=== PATIENT | male | born 1970 | race Two or more races ===

== ENCOUNTER 2025-08-29 10:34 | Inpatient (IN) | payer MEDICAID, OTHER ==
[~2025-08-29] VITALS: Ht 165.1 cm; Wt 106.9 kg
--- NOTE | 2025-08-29 12:05 | ED.PDOC ---
GI ASSESSMENT HPI Comments 54 year old male presents to the ED with a chief complaint of RUQ pain onset 2 months. Patient has been experiencing intermittent RUQ pain for the past 2 months, worsen 5 days ago, was seen at a clinic, US was done and told he had gallstones. Last night he noticed pain worsened and this morning pain was worsening with movement. Denies PMHx as well as fever, chills, nausea, vomiting, diarrhea, headache, dizziness, hematemesis, hematuria, dysuria. No other symptoms or worsening factors present at this time. Chief Complaint: Abdominal Pain Time Seen by MD: 11:45 Reviewed Notes: Medications, Allergies Allergies: Coded Allergies: NO KNOWN ALLERGIES (Unverified , 08/29/25) Home Meds Active Scripts Hydrocodone-Acetaminophen (Hydrocodone Bitartrate/AC 5-325 mg) 1 Tab Tab, 1 TAB PO QID PRN, #30 TAB Prov:SATHISH RIVAS MD 09/01/25 Metronidazole (Flagyl) 500 Mg Tab, 1 TAB PO TID, #30 TAB Prov:SATHISH RIVAS MD 09/01/25 Levofloxacin Hemihydrate (LEVAQUIN 500 MG) 500 Mg Tab, 1 TAB PO DAILY, #10 TAB Prov:SATHISH RIVAS MD 09/01/25 Reported Medications Losartan Potassium (Losartan Potassium) 100 Mg Tab, 100 MG PO DAILY for 30 Days, MG 08/29/25 Information Source: Patient, Spouse Mode of Arrival: Ambulatory Timing: Months Duration: Intermittent Prehospital treatment: None Quality: Sharp Vomitus: None Severity: Moderate Recent: None Recent Hx of: Other (gallstones) Pain Location: RUQ Modifying Factors: Nothing Associated sign and symptoms: Abdominal Pain (RUQ) Past Medical History PAST MEDICAL HISTORY: Gallstones Surgical History: Denies all surgeries Family History Family History: Reviewed,noncontributory to illness, No family hx of Cancer, No family hx of DM, No family hx of Heart keith, No family hx of HTN, No family hx ofKidney keith, No family hx of Liver keith, No family hx of Lung keith, No family hx of Stroke Social History Smoker: Non-Smoker Alcohol: Denies ETOH Use Drugs: Denies Drug Use Lives In: Home Constitutional: denies: chills, diaphoresis, fatigue, fever, malaise, sweats, weakness, others EENTM: denies: blurred vision, double vision, ear bleeding, ear discharge, ear drainage, ear pain, ear ringing, eye pain, eye redness, hearing loss, mouth pain, mouth swelling, nasal discharge, nose bleeding, nose congestion, nose pain, photophobia, tearing, throat pain, throat swelling, voice changes, others Respiratory: denies: cough, hemoptysis, orthopnea, SOB at rest, shortness of breath, SOB with excertion, stridor, wheezing, others Cardiovascular: denies: chest pain, dizzy spells, diaphoresis, Dyspnea on exertion, edema, irregular heart beat, left arm pain, lightheadedness, palpitations, PND, syncope, others Gastrointestinal: reports: abdominal pain; denies: abdomen distended, blood streaked bowels, constipated, diarrhea, dysphagia, difficulty swallowing, hematemesis, melena, nausea, poor appetite, poor fluid intake, rectal bleeding, rectal pain, vomiting, others Genitourinary: denies: burning, dysuria, flank pain, frequency, hematuria, incontinence, penile discharge, penile sore, pain, testicle pain, testicle swelling, urgency, others Neurological: denies: dizziness, fainting, headache, left sided numbness, left sided weakness, numbness, paresthesia, pre-existing deficit, right sided numbness, right sided weakness, seizure, speech problems, tingling, tremors, weakness, others Musculoskeletal: denies: back pain, gout, joint pain, joint swelling, muscle pain, muscle stiffness, neck pain, others Integumetry: denies: bruises, change in color, change in hair/nails, dryness, laceration, lesions, lumps, rash, wounds, others Hematologic/Lymphatic: denies: anemia, blood clots, easy bleeding, easy bruising, swollen glands, others Endocrine: denies: excessive hunger, excessive sweating, excessive thirst, excessive urination, flushing, intolerance to cold, intolerance to heat, unexplained weight gain, unexplained weight loss, others Psychiatric: denies: anxiety, bipolar disorder, depression, hopeless, panic disorder, schizophrenia, sleepless, suicidal, others All Other Systems: Reviewed and Negative Physical Exam General Appearance: Normal HEENT: Normal ENT Inspection, Pharynx Normal, TMs Normal Neck: Full Range of Motion, Non-Tender, Normal, Normal Inspection Respiratory: Chest Non-Tender, Lungs Clear, No Accessory Muscle Use, No Respiratory Distress, Normal Breath Sounds Cardiovascular: No Edema, No JVD, No Murmur, No Gallop, Normal Peripheral Pulses, Regular Rate/Rhythm Breast Exam: Deferred Gastrointestinal: No Organomegaly, Non Tender, No Pulsatile Mass, Normal Bowel Sounds, Soft Genitalia: Deferred Pelvic: Deferred Rectal: Deferred Extremities: No calf tenderness, Normal capillary refill, Normal inspection, Normal range of motion, Non-tender, No pedal edema Musculoskeletal : Apperance: Normal Neurologic: Alert, 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 Was a procedure done?: No GI differential Dx Differential Diagnosis: Cholecystitis, Gastritis/PUD, Gastroenteritis, Pancreatitis, UTI, Electrolyte Imbalance, Viral X-Ray, Labs, Meds, VS Vital Signs Date Time Temp Pulse Resp B/P (MAP) Pulse Ox O2 Delivery O2 Flow Rate FiO2 08/29/25 16:00 66 18 138/87 (104) 96 08/29/25 15:59 88 18 123/78 08/29/25 15:42 97 Room Air* 0 21 08/29/25 15:29 88 18 134/73 08/29/25 14:55 98.6 61 18 123/78 (93) 96 98.6 08/29/25 12:37 Room Air* 0 21 08/29/25 12:37 66 16 144/86 (105) 99 08/29/25 10:43 98.0 65 18 116/67 95 98.0 Lab Test 08/29/25 15:19 08/29/25 11:51 Range/Units POC Glucose 103 70-106 mg/dl White Blood Count 7.1 4.4-10.8 10^3/uL Red Blood Count 5.19 4.5-5.90 10^6/uL Hemoglobin 15.2 13.5-17.5 g/dL Hematocrit 44.6 41.0-53.0 % Mean Corpuscular Volume 85.9 80.0-100.0 fL Mean Corpuscular Hemoglobin 29.4 28.0-32.0 pg Mean Corpuscular Hemoglobin Concent 34.2 32.0-36.0 g/dL Red Cell Distribution Width 14.8 H 11.8-14.3 % Platelet Count 169 140-450 10^3/uL Mean Platelet Volume 8.9 6.9-10.8 fL Neutrophils (%) (Auto) 68.9 37.0-80.0 % Lymphocytes (%) (Auto) 24.6 10.0-50.0 % Monocytes (%) (Auto) 5.2 0.0-12.0 % Eosinophils (%) (Auto) 1.0 0.0-7.0 % Basophils (%) (Auto) 0.3 0.0-2.0 % Neutrophils # (Auto) 4.9 1.6-8.6 10 ^3/uL Lymphocytes # (Auto) 1.7 0.4-5.4 10 ^3/uL Monocytes # (Auto) 0.4 0-1.3 10 ^3/uL Eosinophils # (Auto) 0.1 0-0.8 10 ^3/uL Basophils # (Auto) 0 0-0.2 10 ^3/uL Nucleated Red Blood Cells 0.1 % Sodium Level 144 136-145 mmol/L Potassium Level 3.9 3.5-5.1 mmol/L Chloride Level 108 H 98-107 mmol/L Carbon Dioxide Level 26 20-31 mmol/L Anion Gap 10 5-15 Blood Urea Nitrogen 11 9-23 mg/dL Creatinine 0.69 L 0.700-1.30 mg/dL Glomerular Filtration Rate Calc 110 >90 mL/min BUN/Creatinine Ratio 15.9 10.0-20.0 Serum Glucose 98 74-106 mg/dL Calcium Level 9.4 8.7-10.4 mg/dL Total Bilirubin 0.8 0.2-1.0 mg/dL Aspartate Amino Transferase (AST) 25 13-40 U/L Alanine Aminotransferase (ALT) 36 7-40 U/L Alkaline Phosphatase 70 46-116 U/L Total Protein 7.6 5.7-8.2 g/dL Albumin 4.8 3.2-4.8 g/dL [facility] [id number] [place] [id number] Ph: [phone] DIAGNOSTIC IMAGING Diagnostic Imaging Report : [id number] Signed PATIENT: TALIA CARROLL ACCT: [id number] UNIT: [id number] : 1970 LOC: ER ROOM / BED: / AGE / SEX: 54 / M ADM STATUS: REG ER SERVICE 1141 ORDERING PHYSICIAN: HIGINIO NOBLE MD PROCEDURE(s): GBUS - GALLBLADDER REASON: ruq pain ORDER NUMBER(s): [id number], ACCESSION NUMBER(s): [id number] INDICATION: ruq pain TECHNIQUE: Multiple real-time sonographic images of the abdomen were obtained. COMPARISON: None FINDINGS: Hepatic parenchyma is echogenic consistent with steatosis.. The liver measures 15.7 cm. No intrahepatic biliary ductal dilatation is noted. The gallbladder wall measures 0.22 cm and is unremarkable. Gallstones questi onable sludge noted in the gallbladder. Is a 1 cm echogenic structure in the neck of the gallbladder. Likely gallstone The common duct measures 0.58 cm and is unremarkable. No pericholecystic fluid is noted. Positive sonographic Cuellar's sign The right kidney measures 11 cm. No hydronephrosis. The pancreas is not well visualized due to obscuration from bowel gas. The visualized portions of the IVC and aorta are grossly unremarkable. IMPRESSION: 1. Gallstones questionable sludge in the gallbladder. Echogenic structure in the neck of the gallbladder measuring 1 x 0.4 0.9 cm most likely a gallstone. Positive sonographic Cuellar's sign suggesting acute cholecystitis. 2. Liver measures 15.7 cm echogenic changes parenchymal consistent with steatosis. 3. Pancreas is partially obscured by bowel gas 4. Right kidney measures 11 cm length. ATED BY: ANNA CORONA Jr., DO DICTATED DATE/TIME: 08/29/25 1236 SIGNED BY: ANNA CORONA Jr., SIGNED DATE/TIME: 08/29/25 1236 CC: Time of 1ST Reevaluation: 12:15 Reevaluation 1ST: Unchanged Patient Education/Counseling: Diagnosis, Treatment, Prognosis Family Education/Counseling: Diagnosis, Treatment, Prognosis SEPSIS Sepsis Screen Date sepsis recognized/suspect: Aug 29, 2025 Time Sepsis recognized/suspect: 1043 Recent Procedure: No Respiratory Rate >20: No Heart Rate >90: Yes Temp<36 C (96.8 F) or >38.3 C: No SBP <90 or MAP <65 mmHG: No New Acute Mental Status Change: No Is the patient on CPAP, BIPAP,: No Physician Orders Gallbladder (08/29/25 11:41) Vital Signs Date Time Temp Pulse Resp B/P (MAP) Pulse Ox O2 Delivery O2 Flow Rate FiO2 08/29/25 16:00 66 18 138/87 (104) 96 08/29/25 15:59 88 18 123/78 08/29/25 15:42 97 Room Air* 0 21 08/29/25 15:29 88 18 134/73 08/29/25 14:55 98.6 61 18 123/78 (93) 96 98.6 08/29/25 12:37 Room Air* 0 21 08/29/25 12:37 66 16 144/86 (105) 99 08/29/25 10:43 98.0 65 18 116/67 95 98.0 Laboratory Tests Test 08/29/25 11:51 White Blood Count 7.1 10^3/uL (4.4-10.8) Departure 1 Departure Time of Disposition: 04:36 (Patient presented with abdominal pain that was concerning for possible appendicits, gastritis, cholecystitis, colitis, gastroenteritis, sbo, or orther possible surgical emergency. Data: 1. I ordered and reviewed the result of at least 3 labs including a CBC, BMP, and Urinalysis. 2. I independently interpreted the following tests: Ultrasound is concerning for acute cholecystitis .Risk:This patient has a high risk of morbidity due to further diagnostic testing or treatment and may suffer from an acute abdominal process disorder. Workup reveals acute cholecystitis and patient should be admitted for further workup. and possible expert consultation. ) Impression: Primary Impression: Acute cholecystitis Additional Impression: Intractable abdominal pain Disposition: ADMITTED INPATIENT Admit to: Tele Condition: Guarded e-Prescriptions Hydrocodone-Acetaminophen (Hydrocodone Bitartrate/AC 5-325 mg) 1 Tab Tab 1 TAB PO QID PRN, #30 TAB Prov: SATHISH RIVAS MD 09/01/25 Metronidazole (Flagyl) 500 Mg Tab 1 TAB PO TID, #30 TAB Prov: SATHISH RIVAS MD 09/01/25 Levofloxacin Hemihydrate (LEVAQUIN 500 MG) 500 Mg Tab 1 TAB PO DAILY, #10 TAB Prov: SATHISH RIVAS MD 09/01/25 Critical Care Note Critical Care Time?: Yes Critical care comment: Intractable abdominal pain and acute cholecystitis Authorized and Performed by: Higinio Noble MD Total critical care time: Approximately 42 minutes Due to a high probability of clinically significant, life threatening deterioration, the patient required my highest level of preparedness to intervene emergently and I personally spent this critical care time directly and personally managing the patient. This critical care time included obtaining a history; examining the patient; pulse oximetry; ordering and review of studies; arranging urgent treatment with development of a management plan; evaluation of patient's response to treatment; frequent reassessment; and, discussions with other providers. This critical care time was performed to assess and manage the high probability of imminent, life-threatening deterioration that could result in multi-organ failure. It was exclusive of separately billable procedures and treating other patients and teaching time. Please see my other sections and the rest of the note for further information on patient assessment and treatment. Stability Stability form required: No Heart Score Heart Score: Heart Score Response (Comments) Value History N/A 0 EKG N/A 0 Age N/A 0 Risk Factors N/A 0 Troponin N/A 0 Total 0 I personally scribed for HIGINIO NOBLE MD ([email or web address]) on 08/29/25 at 12:05. Electronically submitted by Kate Macedo ([email or web address]). I personally scribed for HIGINIO NOBLE MD ([email or web address]) on 08/29/25 at 13:14. Electronically submitted by Kate Macedo ([email or web address]). HIGINIO NOBLE MD Aug 29, 2025 12:05
[2025-08-29 12:12] LABS: Hematocrit 44.6 % (41.0-53.0); Hemoglobin 15.2 g/dL (13.5-17.5); Mean Corpuscular Hemoglobin 29.4 pg (28.0-32.0); Mean Corpuscular Volume 85.9 fL (80.0-100.0); Nucleated Red Blood Cells % 0.1 %
[2025-08-29 12:26] LABS: Alanine Aminotransferase 36 U/L (7-40); Albumin 4.8 g/dL (3.2-4.8); Alkaline Phosphatase 70 U/L (46-116); Anion Gap 10 (5-15); BUN/Creatinine Ratio 15.9 (10.0-20.0); Bilirubin, Total 0.8 mg/dL (0.2-1.0); Blood Urea Nitrogen 11 mg/dL (9-23); Calcium 9.4 mg/dL (8.7-10.4); Carbon Dioxide 26 mmol/L (20-31); Chloride 108 mmol/L (98-107); Glucose 98 mg/dL (74-106); Potassium 3.9 mmol/L (3.5-5.1); Sodium 144 mmol/L (136-145); Total Protein 7.6 g/dL (5.7-8.2)
--- NOTE | 2025-08-29 12:39 | DVH ---
INDICATION: ruq pain TECHNIQUE: Multiple real-time sonographic images of the abdomen were obtained. COMPARISON: None FINDINGS: Hepatic parenchyma is echogenic consistent with steatosis.. The liver measures 15.7 cm. No intrahepatic biliary ductal dilatation is noted. The gallbladder wall measures 0.22 cm and is unremarkable. Gallstones questionable sludge noted in the gallbladder. Is a 1 cm echogenic structure in the neck of the gallbladder. Likely gallstone The common duct measures 0.58 cm and is unremarkable. No pericholecystic fluid is noted. Positive sonogr aphic Cuellar's sign The right kidney measures 11 cm. No hydronephrosis. The pancreas is not well visualized due to obscuration from bowel gas. The visualized portions of the IVC and aorta are grossly unremarkable. IMPRESSION: 1. Gallstones questionable sludge in the gallbladder. Echogenic structure in the neck of the gallblad gabrielle measuring 1 x 0.4 0.9 cm most likely a gallstone. Positive sonographic Cuellar's sign suggesting a cute cholecystitis. 2. Liver measures 15.7 cm echogenic changes parenchymal consistent with steatosis. 3. Pancreas is partially obscured by bowel gas 4. Right kidney measures 11 cm length.
[2025-08-29] MEDS: ceFAZolin 2 GM/D5W50ml 50 ML IV ONE (15:28)
[2025-08-29] MEDS: MORPHINE SULFATE 4 MG/ML SYR/VIAL IV ONE (15:29)
[2025-08-29] MEDS: ONDANSETRON HCL 4 MG/2 ML VIAL IV ONE (15:29)
[2025-08-29] MEDS ORDERED: ACETAMINOPHEN 325 MG TAB PO PRN (16:45)
[2025-08-29] MEDS ORDERED: ONDANSETRON HCL 4 MG/2 ML VIAL IV PRN (16:45)
[2025-08-29] MEDS ORDERED: DOCUSATE SOD 100 MG CAP PO PRN (16:45)
[2025-08-29] MEDS: SODIUM CHLORIDE 0.9% 1,000 ML IV ONE ×2 (17:19)
--- NOTE | 2025-08-29 17:27 | DVHINCON2 ---
Date of service: Aug 29, 2025 Allergies: Coded Allergies: NO KNOWN ALLERGIES (Unverified , 08/29/25) Current Medications Current Medications Medications (Trade) Dose Ordered Sig/[place] Route PRN Reason Start Time Stop Time Status Last Admin Acetaminophen/ Hydrocodone Bitart (Anderson 5/325MG Tab) 1 tab Q4HP PRN PO MODERATE PAIN (4-6 PAIN SCALE) 08/29/25 16:45 Ondansetron HCl (Zofran) 4 mg Q4HP PRN IV NAUSEA / VOMITING 08/29/25 16:45 Docusate Sodium (Colace Capsule) 100 mg BIDPRN PRN PO FOR CONSTIPATION 08/29/25 16:45 Acetaminophen (Tylenol Tablet) 650 mg Q6HP PRN PO PAIN SCALE 1-3 OR TEMP>100.4 08/29/25 16:45 Morphine Sulfate 2 mg Q4HPRN PRN IV SEVERE PAIN (7-10 PAIN SCALE) 08/29/25 17:15 Metronidazole 100 ml @ 100 mls/hr Q8HR IV 08/29/25 22:00 Ceftriaxone Sodium 50 ml @ 100 mls/hr DAILY@09 IV 08/29/25 17:05 08/29/25 17:19 Vital Signs Vital Signs Date Time Temp Pulse Resp B/P (MAP) Pulse Ox O2 Delivery O2 Flow Rate FiO2 08/29/25 16:00 66 18 138/87 (104) 96 08/29/25 15:42 Room Air* 0 21 08/29/25 14:55 98.6 98.6 Labs/Diagnostic Data Labs Test 08/29/25 15:19 08/29/25 11:51 Range/Units POC Glucose 103 70-106 mg/dl White Blood Count 7.1 4.4-10.8 10^3/uL Red Blood Count 5.19 4.5-5.90 10^6/uL Hemoglobin 15.2 13.5-17.5 g/dL Hematocrit 44.6 41.0-53.0 % Mean Corpuscular Volume 85.9 80.0-100.0 fL Mean Corpuscular Hemoglobin 29.4 28.0-32.0 pg Mean Corpuscular Hemoglobin Concent 34.2 32.0-36.0 g/dL Red Cell Distribution Width 14.8 H 11.8-14.3 % Platelet Count 169 140-450 10^3/uL Mean Platelet Volume 8.9 6.9-10.8 fL Neutrophils (%) (Auto) 68.9 37.0-80.0 % Lymphocytes (%) (Auto) 24.6 10.0-50.0 % Monocytes (%) (Auto) 5.2 0.0-12.0 % Eosinophils (%) (Auto) 1.0 0.0-7.0 % Basophils (%) (Auto) 0.3 0.0-2.0 % Neutrophils # (Auto) 4.9 1.6-8.6 10 ^3/uL Lymphocytes # (Auto) 1.7 0.4-5.4 10 ^3/uL Monocytes # (Auto) 0.4 0-1.3 10 ^3/uL Eosinophils # (Auto) 0.1 0-0.8 10 ^3/uL Basophils # (Auto) 0 0-0.2 10 ^3/uL Nucleated Red Blood Cells 0.1 % Sodium Level 144 136-145 mmol/L Potassium Level 3.9 3.5-5.1 mmol/L Chloride Level 108 H 98-107 mmol/L Carbon Dioxide Level 26 20-31 mmol/L Anion Gap 10 5-15 Blood Urea Nitrogen 11 9-23 mg/dL Creatinine 0.69 L 0.700-1.30 mg/dL Glomerular Filtration Rate Calc 110 >90 mL/min BUN/Creatinine Ratio 15.9 10.0-20.0 Serum Glucose 98 74-106 mg/dL Calcium Level 9.4 8.7-10.4 mg/dL Total Bilirubin 0.8 0.2-1.0 mg/dL Aspartate Amino Transferase (AST) 25 13-40 U/L Alanine Aminotransferase (ALT) 36 7-40 U/L Alkaline Phosphatase 70 46-116 U/L Total Protein 7.6 5.7-8.2 g/dL Albumin 4.8 3.2-4.8 g/dL Assessment [id number] C/O RUQ ABD PAIN R/O AC CHOLECYSTITIS CONSIDER EMERGENT SURGERY BASED ON ONGOING EVAL Plan discussed with: Patient BERENICE ARMANDO MD Aug 29, 2025 17:27
--- NOTE | 2025-08-29 17:35 | DVHHP2 ---
History of Present Illness Reason for Visit: Abdominal pain History of Present Illness Miguel Angel Bentley is a 54-year-old male with no significant past medical history who came to the hospital for abdominal pain. Patient states he has had intermittent RUQ abdominal pain for about 2 months. Last the pain started worsening and becoming mores constant. Last night the pain was waking him up every 2-3 hours. He states he last ate yesterday about 1600. Past Surgical History: None Smoke: No ALCOHOL: rare Drugs: None Lives: with Family Domestic Violence: Neg Review of Systems Constitutional: No: Fever, Chills, Sweats, Weakness, Malaise, Other Eyes: No: Pain, Vision change, Conjunctivae inflammation, Eyelid inflammation, Other, Redness ENT: No: Ear pain, Ear discharge, Nose pain, Nose discharge, Nose congestion, Mouth pain, Mouth swelling, Throat pain, Throat swelling, Other Respiratory: No: Cough, Dry, Shortness of breath, SOB with excertion, Wheezing, Hemoptysis, Pleuritic Pain, Sputum, Wheezing, Other Cardiovascular: No: Chest Pain, Palpitations, Orthopnea, Paroxysmal Noc. Dyspnea, Edema, Lt Headedness, Other Gastrointestinal: Abdominal Pain (RUQ); No: Nausea, Vomiting, Diarrhea, Cons tipation, Melena, Hematochezia, Other Genitourinary: No Dysuria, No Frequency, No Incontinence, No Hematuria, No Retention, No Other Musculoskeletal: No: other, neck pain, shoulder pain, arm pain, back pain, hand pain, leg pain, foot pain Skin: No: Rash, Lesions, Jaundice, Bruising, Other Neurological: No: Weakness, Numbness, Incoordination, Change in speech, Confusion, Seizures, Other Allergies: Coded Allergies: NO KNOWN ALLERGIES (Unverified , 08/29/25) Medications Current Medications Medications Dose Ordered Sig/Philly Route Start Time Stop Time Status Last Admin Dose Admin Acetaminophen/ Hydrocodone Bitart 1 tab Q4HP PRN PO 08/29/25 16:45 UNV Ondansetron HCl 4 mg Q4HP PRN IV 08/29/25 16:45 UNV Docusate Sodium 100 mg BIDPRN PRN PO 08/29/25 16:45 UNV Acetaminophen 650 mg Q6HP PRN PO 08/29/25 16:45 UNV Morphine Sulfate 2 mg Q4HPRN PRN IV 08/29/25 16:45 UNV Exam Vital Signs Vital Signs Date Time Temp Pulse Resp B/P (MAP) Pulse Ox O2 Delivery O2 Flow Rate FiO2 08/29/25 16:00 66 18 138/87 (104) 96 08/29/25 15:42 Room Air* 0 21 08/29/25 14:55 98.6 98.6 General Appearance: Alert, Oriented X3, Cooperative HEENT: Atraumatic, PERRLA Respiratory: Clear to auscultation, Normal air movement Cardiovascular: Regular rate, Normal S1, Normal S2 Abdominal: Normal bowel sounds, Soft, Other (RUQ tenderness) Extremities: No clubbing, No cyanosis, No edema, Normal pulses, No tenderness/swelling Skin: No rashes, No breakdown, No significant lesion Neuro: Normal gait, Normal speech, Strength at 5/5 X4 ext Psych/Mental Status: Mental status NL, Mood NL Labs/Xrays Labs Test 08/29/25 15:19 08/29/25 11:51 Range/Units POC Glucose 103 70-106 mg/dl White Blood Count 7.1 4.4-10.8 10^3/uL Red Blood Count 5.19 4.5-5.90 10^6/uL Hemoglobin 15.2 13.5-17.5 g/dL Hematocrit 44.6 41.0-53.0 % Mean Corpuscular Volume 85.9 80.0-100.0 fL Mean Corpuscular Hemoglobin 29.4 28.0-32.0 pg Mean Corpuscular Hemoglobin Concent 34.2 32.0-36.0 g/dL Red Cell Distribution Width 14.8 H 11.8-14.3 % Platelet Count 169 140-450 10^3/uL Mean Platelet Volume 8.9 6.9-10.8 fL Neutrophils (%) (Auto) 68.9 37.0-80.0 % Lymphocytes (%) (Auto) 24.6 10.0-50.0 % Monocytes (%) (Auto) 5.2 0.0-12.0 % Eosinophils (%) (Auto) 1.0 0.0-7.0 % Basophils (%) (Auto) 0.3 0.0-2.0 % Neutrophils # (Auto) 4.9 1.6-8.6 10 ^3/uL Lymphocytes # (Auto) 1.7 0.4-5.4 10 ^3/uL Monocytes # (Auto) 0.4 0-1.3 10 ^3/uL Eosinophils # (Auto) 0.1 0-0.8 10 ^3/uL Basophils # (Auto) 0 0-0.2 10 ^3/uL Nucleated Red Blood Cells 0.1 % Sodium Level 144 136-145 mmol/L Potassium Level 3.9 3.5-5.1 mmol/L Chloride Level 108 H 98-107 mmol/L Carbon Dioxide Level 26 20-31 mmol/L Anion Gap 10 5-15 Blood Urea Nitrogen 11 9-23 mg/dL Creatinine 0.69 L 0.700-1.30 mg/dL Glomerular Filtration Rate Calc 110 >90 mL/min BUN/Creatinine Ratio 15.9 10.0-20.0 Serum Glucose 98 74-106 mg/dL Calcium Level 9.4 8.7-10.4 mg/dL Total Bilirubin 0.8 0.2-1.0 mg/dL Aspartate Amino Transferase (AST) 25 13-40 U/L Alanine Aminotransferase (ALT) 36 7-40 U/L Alkaline Phosphatase 70 46-116 U/L Total Protein 7.6 5.7-8.2 g/dL Albumin 4.8 3.2-4.8 g/dL TECHNIQUE: Multiple real-time sonographic images of the abdomen were obtained. FINDINGS: Hepatic parenchyma is echogenic consistent with steatosis.. The liver measures 15.7 cm. No intrahepatic biliary ductal dilatation is noted. The gallbladder wall measures 0.22 cm and is unremarkable. Gallstones questionable sludge noted in the gallbladder. Is a 1 cm echogenic structure in the neck of the gallbladder. Likely gallstone The common duct measures 0.58 cm and is unremarkable. No pericholecystic fluid is noted. Positive sonographic Cuellar's sign The right kidney measures 11 cm. No hydronephrosis. The pancreas is not well visualized due to obscuration from bowel gas. The visualized portions of the IVC and aorta are grossly unremarkable. IMPRESSION: 1. Gallstones questionable sludge in the gallbladder. Echogenic structure in the neck of the gallbladder measuring 1 x 0.4 0.9 cm most likely a gallstone. Positive sonographic Cuellar's sign suggesting acute cholecystitis. 2. Liver measures 15.7 cm echogenic changes parenchymal consistent with steatosis. 3. Pancreas is partially obscured by bowel gas 4. Right kidney measures 11 cm length. SEPSIS Sepsis Screen Date sepsis recognized/suspect: Aug 29, 2025 Time Sepsis recognized/suspect: 1239 Recent Procedure: No On Antibiotic Therapy: No Respiratory Rate >20: No Heart Rate >90: No Temp<36 C (96.8 F) or >38.3 C: No SBP <90 or MAP <65 mmHG: No New Acute Mental Status Change: No Is the patient on CPAP, BIPAP,: No Physician Orders Gallbladder (08/29/25 11:41) Admit (08/29/25 16:32) Code Status (08/29/25 16:32) Hydrocodone-Acet 5/325mg Tab (Browns (08/29/25 16:45) Ondansetron Hcl (Zofran) (08/29/25 16:45) Docusate Sodium Capsule (Colace Capsule) (08/29/25 16:45) Complete Blood Count (08/30/25 04:00) Comprehensive Metabolic Panel (08/30/25 04:00) Condition: Serious (08/29/25 16:32) Acetaminophen Tablet (Tylenol Tablet) (08/29/25 16:45) Morphine Sulfate Injection (08/29/25 16:45) * Surgical Consult (08/29/25 ) Vital Signs Date Time Temp Pulse Resp B/P (MAP) Pulse Ox O2 Delivery O2 Flow Rate FiO2 08/29/25 16:00 66 18 138/87 (104) 96 08/29/25 15:59 88 18 123/78 08/29/25 15:42 97 Room Air* 0 21 08/29/25 15:29 88 18 134/73 08/29/25 14:55 98.6 61 18 123/78 (93) 96 98.6 08/29/25 12:37 Room Air* 0 21 08/29/25 12:37 66 16 144/86 (105) 99 08/29/25 10:43 98.0 65 18 116/67 95 98.0 Laboratory Tests Test 08/29/25 11:51 White Blood Count 7.1 10^3/uL (4.4-10.8) Medications Medications Dose Ordered Sig/Ph[place] Route Start Time Stop Time Status Last Admin Dose Admin Cefazolin Sodium/ Dextrose 50 ml @ 50 mls/hr ONCE ONCE IV 08/29/25 14:30 08/29/25 15:29 DC 08/29/25 15:28 50 MLS/HR Metronidazole 100 ml @ 100 mls/hr ONCE ONCE IV 08/29/25 14:30 08/29/25 15:29 DC 08/29/25 15:28 100 MLS/HR Morphine Sulfate 4 mg ONCE ONCE IV 08/29/25 14:30 08/29/25 14:42 DC 08/29/25 15:29 4 MG Ondansetron HCl 4 mg ONCE ONCE IV 08/29/25 14:30 08/29/25 14:42 DC 08/29/25 15:29 4 MG Assessment/Plan Assessment/Plan Assessment: Cholecystitis, Obesity, Plan: Admit to Med-Surg, Surgical consult, IV hydration, IV antibiotics, Pain management, Antiemetics, Plan discussed with: Patient My Orders Orders - ELIAS ESCOTO Procedure Category Date Status Time Admit ADMIT 08/29/25 Transmitted 16:32 Code Status CODE 08/29/25 Transmitted 16:32 Hydrocodone-Acet PHA 08/29/25 Logged 5/325mg Tab (Browns 16:45 Ondansetron Hcl PHA 08/29/25 Logged (Zofran) 16:45 Docusate Sodium PHA 08/29/25 Logged Capsule (Colace 16:45 Complete Blood Count LAB 08/30/25 Verified 04:00 Comprehensive LAB 08/30/25 Verified Metabolic Panel 04:00 Condition: Serious NICOLE 08/29/25 In Process 16:32 Acetaminophen Tablet PHA 08/29/25 Logged (Tylenol Tablet) 16:45 Morphine Sulfate PHA 08/29/25 Logged Injection 16:45 * Surgical Consult CONS 08/29/25 Transmitted Date of Service: Aug 29, 2025 Billing Provider: ELIAS ESCOTO Common Visit Codes: [id number] INP/OBS CARE (MOD) ELIAS ESCOTO Aug 29, 2025 17:35
[2025-08-29 18:10] LABS: INR 1.03 (0.9-1.15); Partial Thromboplastin Time 26.1 SEC (24.5-34.5); Prothrombin Time 10.9 sec (9.3-11.8)
[2025-08-29 18:20] VITALS: BP 155/93; PULSE 76; RESP 20; TEMP 98.9; O2SAT 96
--- NOTE | 2025-08-29 18:37 | DVHINCON2 ---
DATE OF CONSULTATION: 08/29/2025 HISTORY OF PRESENT ILLNESS: This patient is 54 years old coming in with right lower abdominal pain. He has had this before and came to the emergency room. I was asked to see him. No nausea or vomiting. No constipation or diarrhea. No fever or chills. No hematemesis or melena. No bleeding per rectum. PAST MEDICAL HISTORY: No diabetes or hypertension. PAST SURGICAL HISTORY: Nothing significant. PHYSICAL EXAMINATION: VITAL SIGNS: Afebrile. Stable signs. HEENT: No evidence of pallor, cyanosis, or jaundice. NECK: Supple and nontender with no thyromegaly or lymphadenopathy. CHEST AND LUNGS: Clear. HEART: Within normal limits. ABDOMEN: Soft, minimally tender in the right upper quadrant with no rebound. EXTREMITIES: Unremarkable. NEUROLOGIC: Neurologically, he is intact. CLINICAL IMPRESSION: Rule out acute cholecystitis. PLAN: The plan would be to consider laparoscopic possible open cholecystectomy. Benefits were discussed and that will be based upon ongoing evaluation. MD KHADIJAH Bland/KIMBERLY TID: [id number] RECEIPT: [id number] cc: Mario Hernandez
[2025-08-29] MEDS ORDERED: LOSA-535 PO (18:51)
--- NOTE | 2025-08-29 18:56 | DVH ---
CHEST RADIOGRAPH Indication: Pre-Op Technique: Single frontal view of the chest was obtained COMPARISON: None FINDINGS: Lungs and pleural spaces are clear. Cardiac silhouette and anthony are within normal limits. Bones and s oft tissues demonstrate no significant abnormality. IMPRESSION: No acute disease.
[2025-08-29 20:52] VITALS: PULSE 75; RESP 18; O2SAT 95
[2025-08-29 21:00] VITALS: BP 142/80; PULSE 75; RESP 18; TEMP 98.3; O2SAT 95
[2025-08-30] VITALS (10 sets, daily range): BP systolic 128–147; BP diastolic 75–97; PULSE 59–84; RESP 14–19; TEMP 97.8–98.8; O2SAT 94–97
[2025-08-30 06:24] LABS: Hematocrit 41.7 % (41.0-53.0); Hemoglobin 14.4 g/dL (13.5-17.5); Mean Corpuscular Hemoglobin 29.7 pg (28.0-32.0); Mean Corpuscular Volume 86.0 fL (80.0-100.0); Nucleated Red Blood Cells % 0.2 %
[2025-08-30 06:37] LABS: Alanine Aminotransferase 33 U/L (7-40); Albumin 4.4 g/dL (3.2-4.8); Alkaline Phosphatase 63 U/L (46-116); Anion Gap 12 (5-15); BUN/Creatinine Ratio 16.0 (10.0-20.0); Blood Urea Nitrogen 12 mg/dL (9-23); Calcium 9.1 mg/dL (8.7-10.4); Carbon Dioxide 27 mmol/L (20-31); Chloride 105 mmol/L (98-107); Glucose 93 mg/dL (74-106); Potassium 4.4 mmol/L (3.5-5.1); Sodium 144 mmol/L (136-145); Total Protein 7.0 g/dL (5.7-8.2)
[2025-08-30 06:38] LABS: Bilirubin, Total 0.6 mg/dL (0.2-1.0)
[2025-08-30] MEDS: ROCURONIUM 10MG/ML 10ML VIAL IV ONE (12:14)
[2025-08-30] MEDS: SUCCINYLCHOLINE CHLORIDE 20 MG/ML 10ML VIAL IV ONE (12:14)
--- NOTE | 2025-08-30 12:23 | DVHPN2 ---
Reviewed: Care Plan, H&P, Labs, Medications, Previous Orders, Radiology Changes from previous H/P or p: No Changes Eyes: No Pain, No Vision change, No Conjunctivae inflammation, No Eyelid inflammation, No Other, No Redness ENT: No Ear pain, No Ear discharge, No Nose pain, No Nose discharge, No Nose congestion, No Mouth pain, No Mouth swelling, No Throat pain, No Throat swelling, No Other Cardiovascular: No Chest Pain, No Palpitations, No Orthopnea, No Paroxysmal Noc. Dyspnea, No Edema, No Lt Headedness, No Other Respiratory: No Cough, No Dry, No Shortness of breath, No SOB with excertion, No Wheezing, No Hemoptysis, No Pleuritic Pain, No Sputum, No Other Gastrointestinal: No Nausea, No Vomiting; Abdominal Pain (RUQ); No Diarrhea, No Constipation, No Melena, No Hematochezia, No Other Genitourinary: No Dysuria, No Frequency, No Incontinence, No Hematuria, No Retention, No Other Musculoskeletal: No other, No neck pain, No shoulder pain, No arm pain, No back pain, No hand pain, No leg pain, No foot pain Skin: No Rash, No Lesions, No Jaundice, No Bruising, No Other Objective Vitals Vital Signs Date Time Temp Pulse Resp B/P (MAP) Pulse Ox O2 Delivery O2 Flow Rate FiO2 08/30/25 09:00 98.2 71 16 144/89 (107) 95 98.2 08/30/25 08:00 Room Air* 0 21 Intake/Output Intake and Output 08/30/25 07:00 Intake Total 400 ml Balance 400 ml IV Total 400 ml # Voids 2 Medications Current Medications Medications Dose Ordered Sig/[place] Route Start Time Stop Time Status Last Admin Dose Admin Acetaminophen/ Hydrocodone Bitart 1 tab Q4HP PRN PO 08/29/25 16:45 Ondansetron HCl 4 mg Q4HP PRN IV 08/29/25 16:45 Docusate Sodium 100 mg BIDPRN PRN PO 08/29/25 16:45 Acetaminophen 650 mg Q6HP PRN PO 08/29/25 16:45 Morphine Sulfate 2 mg Q4HPRN PRN IV 08/29/25 17:15 Metronidazole 100 ml @ 100 mls/hr Q8HR IV 08/29/25 22:00 08/30/25 05:31 100 MLS/HR Ceftriaxone Sodium 50 ml @ 100 mls/hr DAILY@09 IV 08/29/25 17:05 08/30/25 08:53 100 MLS/HR Laboratory Results Laboratory Tests 08/30/25 04:42 Chemistry Test 08/30/25 04:42 Albumin 4.4 g/dL (3.2-4.8) Calcium Level 9.1 mg/dL (8.7-10.4) Total Protein 7.0 g/dL (5.7-8.2) Coagulation Test 08/29/25 17:40 Prothrombin Time 10.9 sec (9.3-11.8) Prothrombin Time INR 1.03 (0.9-1.15) Activated Partial Thromboplast Time 26.1 SEC (24.5-34.5) LFT Test 08/30/25 04:42 Alanine Aminotransferase (ALT) 33 U/L (7-40) Alkaline Phosphatase 63 U/L (46-116) Aspartate Amino Transferase (AST) 28 U/L (13-40) Total Bilirubin 0.6 mg/dL (0.2-1.0) HgA1c, TSH Test 08/29/25 17:40 Hemoglobin A1c 6.0 % A1C (<5.7) H Labs and/or images reviewed: Labs reviewed by me, Image(s) reviewed by me Assessment/Plan Assessment/Plan Acute abdominal pain Acute cholecystitis: Rocephin Flagyl pain medications Dr. Josefina Guzman planning for laparoscopic cholecystectomy Acute dehydration: IV fluids Time spent 48 minutes Plan discussed with: Patient Date of Service: Aug 30, 2025 Billing Provider: SATHISH RIVAS MD Common Visit Codes: [id number] INP/OBS CARE(HIGH) SATHISH RIVAS MD Aug 30, 2025 12:23
[2025-08-30] MEDS ORDERED: HYDROmorphone HCL 2 MG/ML VL/or syr ONE (12:24)
[2025-08-30] MEDS ORDERED: LIDOCAINE 1% INJ PF 5ML AMP ONE (12:25)
[2025-08-30] MEDS ORDERED: ONDANSETRON HCL 4 MG/2 ML VIAL ONE (12:25)
[2025-08-30] MEDS ORDERED: fentaNYL CITRATE 100 MCG/2 ML VL ONE (12:25)
[2025-08-30] MEDS ORDERED: NEOSTIGMINE 1 MG/ML INJ (10mg/10ML VIAL) ONE (12:25)
[2025-08-30] MEDS ORDERED: LIDOCAINE 2% TOPICAL JELLY 5 ML URJT TOP ONE (12:25)
[2025-08-30] MEDS ORDERED: SODIUM CHLORIDE LOCK 20 ML ONE (12:25)
[2025-08-30] MEDS ORDERED: MIDAZOLAM HCL 2MG/2ML 2ml VIAL (1mg/ml) ONE (12:25)
[2025-08-30] MEDS ORDERED: PROPOFOL 10 MG/ML 20 ML IV ONE (12:25)
[2025-08-30] MEDS ORDERED: GLYCOPYRROLATE 0.2 MG/ML 1ML VIAL ONE (12:25)
[2025-08-30] MEDS ORDERED: METOCLOPRAMIDE HCL 5MG/ml INJ 2ml VIAL IV PRN (13:30)
[2025-08-30] MEDS: KETOROLAC TROMETH 30 MG/ML 1ML VIAL IV ONE (13:30)
[2025-08-30] MEDS ORDERED: MORPHINE SULFATE 4 MG/ML SYR/VIAL IV PRN (13:30)
[2025-08-30] MEDS ORDERED: HYDROmorphone HCL 2 MG/ML VL/or syr IV PRN (13:30)
[2025-08-30] MEDS: ceFAZolin 2 GM/D5W50ml 50 ML IV ONE (13:40)
[2025-08-30] MEDS ORDERED: MORPHINE SULFATE INJ 2 MG/ml SYRG IV PRN (14:12)
[2025-08-30] MEDS: BUPIVACAINE HCL 0.25% P/F 10 ML VIAL ONE (14:22)
--- NOTE | 2025-08-30 14:52 | DVHOP2 ---
Operative Report [id number] AC CHOLECYSTITIS LAP CHOLECYSTECTOMY EBL 5 CC NO DRAINS NO COMPLICATIONS STABLE TRANSFER TO RECOVERY ROOM BERENICE ARMANDO MD Aug 30, 2025 14:52
[2025-08-30] MEDS: HYDROmorphone HCL 2 MG/ML VL/or syr IV PRN (15:06)
[2025-08-30] MEDS: HYDROcodone-ACET 5/325MG TAB PO PRN (17:14)
[2025-08-30] MEDS: MORPHINE SULFATE 4 MG/ML SYR/VIAL IV PRN (22:43)
[2025-08-31] VITALS (7 sets, daily range): BP systolic 133–162; BP diastolic 87–101; PULSE 69–77; RESP 16–17; TEMP 98–100.4; O2SAT 91–97
--- NOTE | 2025-08-31 02:08 | DVHOP ---
DATE OF SURGERY: 08/30/2025 PREOPERATIVE DIAGNOSIS: Acute cholecystitis. POSTOPERATIVE DIAGNOSIS: Acute cholecystitis. PROCEDURE: Laparoscopic cholecystectomy. SURGEON: Oneil Guzman MD LOG DRIVER: None. ANESTHESIA: General. BLOOD LOSS: Close to 5 mL. DRAINS: No drains were used. COMPLICATIONS: No complications were encountered. DESCRIPTION OF PROCEDURE: The patient was prepped and draped in the usual sterile fashion in the supine position and a supraumbilical incision was applied. It was taken down to the fascia. The Veress needle was introduced and CO2 insufflation was started at a pressure of 15 mmHg. The needle was withdrawn, replaced by a 5-mm trocar and the telescope was introduced and the gallbladder was found to be acutely inflamed and distended. A 12-mm port was applied close to the xiphisternum and two 5-mm ports were applied more laterally to the subcostal line. With the instruments in place, the gallbladder was grasped with the fundus and the infundibulum and the cystic duct and artery were , dissected out and clipped proximally and distally using the Hem-o-Isma clips and divided in between making sure CBD was kept out of harm's way at all times. The gallbladder was detached from the liver bed using Harmonic dissection, placed in an EndoCatch bag and removed from the xiphisternal wound without any complication. Hemostasis was secured. Irrigation fluid was removed. The port sites were free from bleeding. EndoClose suture was used for the fascial closure of the xiphisternal wound. All the ports were withdrawn after all of the CO2 had been let out and the patient was placed back supine. The wounds were then brought together using 3-0 Monocryl suture in a subcuticular fashion. Surgical glue was applied. The patient tolerated the procedure well and was taken back to the recovery room in stable condition. MD KHADIJAH Bland/TERESA TID: [id number] RECEIPT: [id number] cc: Blossom Loomis NP
--- NOTE | 2025-08-31 08:40 | DVHPN2 ---
Reviewed: Care Plan, H&P, Labs, Medications, Previous Orders, Radiology Changes from previous H/P or p: No Changes Eyes: No Pain, No Vision change, No Conjunctivae inflammation, No Eyelid inflammation, No Other, No Redness ENT: No Ear pain, No Ear discharge, No Nose pain, No Nose discharge, No Nose congestion, No Mouth pain, No Mouth swelling, No Throat pain, No Throat swelling, No Other Cardiovascular: No Chest Pain, No Palpitations, No Orthopnea, No Paroxysmal Noc. Dyspnea, No Edema, No Lt Headedness, No Other Respiratory: No Cough, No Dry, No Shortness of breath, No SOB with excertion, No Wheezing, No Hemoptysis, No Pleuritic Pain, No Sputum, No Other Gastrointestinal: No Nausea, No Vomiting; Abdominal Pain (RUQ); No Diarrhea, No Constipation, No Melena, No Hematochezia, No Other Genitourinary: No Dysuria, No Frequency, No Incontinence, No Hematuria, No Retention, No Other Musculoskeletal: No other, No neck pain, No shoulder pain, No arm pain, No back pain, No hand pain, No leg pain, No foot pain Skin: No Rash, No Lesions, No Jaundice, No Bruising, No Other Objective Vitals Vital Signs Date Time Temp Pulse Resp B/P (MAP) Pulse Ox O2 Delivery O2 Flow Rate FiO2 08/31/25 05:00 98.1 69 16 162/101 (121) 97 98.1 08/30/25 20:00 Nasal Cannula* 1 24 Intake/Output Intake and Output 08/31/25 07:00 Intake Total 850 ml Balance 850 ml Intake Oral 450 ml IV Total 400 ml # Voids 5 Medications Current Medications Medications Dose Ordered Sig/Ph[place] Route Start Time Stop Time Status Last Admin Dose Admin Acetaminophen/ Hydrocodone Bitart 1 tab Q4HP PRN PO 08/29/25 16:45 08/31/25 02:07 1 TAB Ondansetron HCl 4 mg Q4HP PRN IV 08/29/25 16:45 Docusate Sodium 100 mg BIDPRN PRN PO 08/29/25 16:45 Acetaminophen 650 mg Q6HP PRN PO 08/29/25 16:45 Morphine Sulfate 2 mg Q4HPRN PRN IV 08/29/25 17:15 08/30/25 22:43 2 MG Metronidazole 100 ml @ 100 mls/hr Q8HR IV 08/29/25 22:00 08/31/25 05:28 100 MLS/HR Ceftriaxone Sodium 50 ml @ 100 mls/hr DAILY@09 IV 08/29/25 17:05 08/30/25 08:53 100 MLS/HR Laboratory Results Laboratory Tests 08/30/25 04:42 Labs and/or images reviewed: Labs reviewed by me, Image(s) reviewed by me Assessment/Plan Assessment/Plan Acute abdominal pain Acute cholecystitis: Rocephin Flagyl pain medications status post lap chet by surgeon Dr. Josefina Guzman on 08/30/2025 Acute dehydration: IV fluids Hypertension: Start back home medication Losartan 100 mg p.o. daily Time spent 48 minutes Advance diet as tolerated Plan discussed with: Patient Date of Service: Aug 31, 2025 Billing Provider: SATHISH RIVAS MD Common Visit Codes: [id number] INP/OBS CARE(HIGH) SATHISH RIVAS MD Aug 31, 2025 08:40
--- NOTE | 2025-08-31 09:29 | ECG ---
[facility] Test Date: 2025-08-30 Test Time: 12:35:56 Pat Name: TALIA CARROLL Department: Respiratoy Room: 0215 A Gender: M Lead Clinical Research Coordinator: AMIE : 1970 Requested By: ELIAS ESCOTO Order Number: [id number] Reading MD: Nilton Pedroza Measurements Intervals [place] Rate: 67 P: -6 KS: 126 QRS: 7 QRSD: 102 T: 56 QT: 404 QTc: 427 Interpretive Statements Sinus rhythm Electronically Signed On 09-02-2025 19:45:31 PDT by Nilton Pedroza Please click the below link to view image of tracing.
--- NOTE | 2025-08-31 10:10 | DVHPN2 ---
Progress Note Date Seen: Aug 31, 2025 Medical Necessity Reason Pt with a Central, PICC or Fol: No Objective vital signs Vital Sign Date Time Temp Pulse Resp B/P (MAP) Pulse Ox O2 Delivery O2 Flow Rate FiO2 08/31/25 09:10 77 16 154/90 08/31/25 09:00 98.2 91 98.2 08/30/25 20:00 Nasal Cannula* 1 24 Total Intake and Output 08/30/25 08/30/25 08/31/25 15:00 23:00 07:00 Intake Total 200 ml 100 ml 550 ml Balance 200 ml 100 ml 550 ml medications Current Medications Medications Dose Ordered Sig/Ph[place] Route Start Time Stop Time Status Last Admin Dose Admin Acetaminophen/ Hydrocodone Bitart 1 tab Q4HP PRN PO 08/29/25 16:45 08/31/25 02:07 1 TAB Ondansetron HCl 4 mg Q4HP PRN IV 08/29/25 16:45 Docusate Sodium 100 mg BIDPRN PRN PO 08/29/25 16:45 Acetaminophen 650 mg Q6HP PRN PO 08/29/25 16:45 Morphine Sulfate 2 mg Q4HPRN PRN IV 08/29/25 17:15 08/31/25 09:10 2 MG Metronidazole 100 ml @ 100 mls/hr Q8HR IV 08/29/25 22:00 08/31/25 05:28 100 MLS/HR Ceftriaxone Sodium 50 ml @ 100 mls/hr DAILY@09 IV 08/29/25 17:05 08/31/25 09:09 100 MLS/HR Losartan Potassium 100 mg DAILY PO 08/31/25 10:00 laboratory and microbiology Laboratory Tests 08/30/25 04:42 Test 08/30/25 04:42 Range/Units Serum Glucose 93 74-106 mg/dL Problem List/Assessment/Plan Problem List/Assessment/Plan AFEBRILE VSS ABD SOFT WOUNDS HEALING NO COMPLICATIONS ADVANCE DIET SADIA Plan discussed with: Patient My Orders My Orders Orders - BERENICE ARMANDO MD Procedure Category Date Status Time Obtain Consent For: ORDERS 08/30/25 Transmitted 13:12 Obtain Consent For NICOLE 08/30/25 In Process Anesthesia 13:12 Complete Blood Count LAB 08/31/25 Logged 10:06 Comprehensive LAB 08/31/25 Logged Metabolic Panel 10:06 BERENICE ARMANDO MD Aug 31, 2025 10:10
[2025-08-31 11:10] LABS: Hematocrit 42.4 % (41.0-53.0); Hemoglobin 14.5 g/dL (13.5-17.5); Mean Corpuscular Hemoglobin 29.3 pg (28.0-32.0); Mean Corpuscular Volume 85.3 fL (80.0-100.0); Nucleated Red Blood Cells % 0.1 %
[2025-08-31] MEDS: LOSARTAN POTASSIUM 50 MG TAB PO SCH (11:13)
[2025-08-31 11:24] LABS: Alkaline Phosphatase 57 U/L (46-116); Anion Gap 12 (5-15); BUN/Creatinine Ratio 10.0 (10.0-20.0); Calcium 9.0 mg/dL (8.7-10.4); Carbon Dioxide 24 mmol/L (20-31); Chloride 106 mmol/L (98-107); Potassium 3.9 mmol/L (3.5-5.1); Sodium 142 mmol/L (136-145); Total Protein 7.3 g/dL (5.7-8.2)
[2025-08-31 11:25] LABS: Alanine Aminotransferase 46 U/L (7-40); Albumin 4.6 g/dL (3.2-4.8); Bilirubin, Total 0.6 mg/dL (0.2-1.0); Blood Urea Nitrogen 8 mg/dL (9-23); Glucose 131 mg/dL (74-106)
[2025-09-01 01:00] VITALS: BP 162/91; PULSE 75; RESP 14; TEMP 98.5; O2SAT 95
[2025-09-01 05:00] VITALS: BP 144/95; PULSE 69; RESP 14; TEMP 98.1; O2SAT 96
[2025-09-01 08:59] VITALS: BP 151/102; PULSE 70; RESP 17; TEMP 98.2; O2SAT 95
[2025-09-01] MEDS ORDERED: LEVO500T91 PO (09:25)
[2025-09-01] MEDS ORDERED: HYDR-4902 PO (09:25)
[2025-09-01] MEDS ORDERED: METR-344 PO (09:25)
--- NOTE | 2025-09-01 09:31 | DVHDS2 ---
Discharge Summary Date of Admission Aug 29, 2025 at 16:32 Date of Discharge: Sep 01, 2025 Admitting Diagnosis Acute cholecystitis Wounds: Laparoscopic cholecystectomy Labs/Diagnostic Data: Laboratory Results Test 08/31/25 10:40 08/29/25 17:40 08/29/25 15:19 White Blood Count 8.2 10^3/uL (4.4-10.8) Red Blood Count 4.97 10^6/uL (4.5-5.90) Hemoglobin 14.5 g/dL (13.5-17.5) Hematocrit 42.4 % (41.0-53.0) Mean Corpuscular Volume 85.3 fL (80.0-100.0) Mean Corpuscular Hemoglobin 29.3 pg (28.0-32.0) Mean Corpuscular Hemoglobin Concent 34.3 g/dL (32.0-36.0) Red Cell Distribution Width 14.0 % (11.8-14.3) Platelet Count 179 10^3/uL (140-450) Mean Platelet Volume 8.9 fL (6.9-10.8) Neutrophils (%) (Auto) 75.7 % (37.0-80.0) Lymphocytes (%) (Auto) 17.2 % (10.0-50.0) Monocytes (%) (Auto) 6.3 % (0.0-12.0) Eosinophils (%) (Auto) 0.5 % (0.0-7.0) Basophils (%) (Auto) 0.3 % (0.0-2.0) Neutrophils # (Auto) 6.2 10 ^3/uL (1.6-8.6) Lymphocytes # (Auto) 1.4 10 ^3/uL (0.4-5.4) Monocytes # (Auto) 0.5 10 ^3/uL (0-1.3) Eosinophils # (Auto) 0 10 ^3/uL (0-0.8) Basophils # (Auto) 0 10 ^3/uL (0-0.2) Nucleated Red Blood Cells 0.1 % Sodium Level 142 mmol/L (136-145) Potassium Level 3.9 mmol/L (3.5-5.1) Chloride Level 106 mmol/L (98-107) Carbon Dioxide Level 24 mmol/L (20-31) Anion Gap 12 (5-15) Blood Urea Nitrogen 8 mg/dL (9-23) Creatinine 0.80 mg/dL (0.700-1.30) Glomerular Filtration Rate Calc 105 mL/min (>90) BUN/Creatinine Ratio 10.0 (10.0-20.0) Serum Glucose 131 mg/dL (74-106) Calcium Level 9.0 mg/dL (8.7-10.4) Total Bilirubin 0.6 mg/dL (0.2-1.0) Aspartate Amino Transferase (AST) 52 U/L (13-40) Alanine Aminotransferase (ALT) 46 U/L (7-40) Alkaline Phosphatase 57 U/L (46-116) Total Protein 7.3 g/dL (5.7-8.2) Albumin 4.6 g/dL (3.2-4.8) Prothrombin Time 10.9 sec (9.3-11.8) Prothrombin Time INR 1.03 (0.9-1.15) Activated Partial Thromboplast Time 26.1 SEC (24.5-34.5) Hemoglobin A1c 6.0 % A1C (<5.7) POC Glucose 103 mg/dl (70-106) Other Laboratory Tests 08/31/25 10:40 Brief Hx & Hospital Course: Admitted for acute cholecystitis underwent laparoscopic cholecystectomy by Dr. Josefina Guzman postop course uneventful treated with the IV antibiotics IV fluids and pain medications passing gas abdomen is soft afebrile vital signs stable discharged home prescription for Levaquin Flagyl [place] transmitted to pharmacy he will follow up with the Dr. Josefina Guzman in 10 days Consults/Reason for consult Surgeon Dr. Josefina Guzman Operations or Procedures Laparoscopic cholecystectomy Condition at Discharge: Fair Final Diagnosis/Problems List Acute abdominal pain Acute cholecystitis: Rocephin Flagyl pain medications status post lap chet by surgeon Dr. Josefina Guzman on 08/30/2025 Acute dehydration: IV fluids Hypertension: Start back home medication Losartan 100 mg p.o. daily Discharge Disposition: Home with Health Services Discharge Instruct/Medications Diet: Cardiac 2g Na,low cholest Activity: Light activity Follow Up/Referral: Follow up with surgeon Dr. Josefina Guzman in 10 days Use medications as prescribed Medications: Levaquin Flagyl [place] Transmitted to pharmacy Scheduled Levofloxacin Hemihydrate (Levaquin 500 Mg), 1 TAB PO DAILY Losartan Potassium (Losartan Potassium), 100 MG PO DAILY, (Reported) Metronidazole (Flagyl), 1 TAB PO TID Scheduled PRN Hydrocodone-Acetaminophen (Hydrocodone Bitartrate/AC 5-325 mg), 1 TAB PO QID PRN 39 (Time taken for discharge summary 39 minutes) Discharge Statement: "Patient was advised to return to the ER or call 911 if any headaches, dizziness, shortness of breath, chest pain, abdominal pain, bleeding, fevers, or worsening of medical condition. Patient was counseled about treatment plan, medications, possible side effects, patientverbalized understanding. All questions were answered to the best of my ability. This discharge took greater then 30 minutes in planning, reviewing documentation, counseling the patient, and discussing with other team members." ASSESSMENT ASSESSMENT Hospital Course Uneventful Assessment Acute abdominal pain Acute cholecystitis: Rocephin Flagyl pain medications status post lap chet by surgeon Dr. Josefina Guzman on 08/30/2025 Acute dehydration: IV fluids Hypertension: Start back home medication Losartan 100 mg p.o. daily Date of Service: Sep 01, 2025 Billing Provider: SATHISH RIVAS MD Common Visit Codes: 01263-NJU/OBS DISCH DAY >30min SATHISH RIVAS MD Sep 01, 2025 09:31
[2025-09-01 10:39] VITALS: BP 150/102; PULSE 70; RESP 17; TEMP 98.2; O2SAT 95
== END 2025-09-01 11:55 | disposition home or self-care (01) | DRG 263 ==
LOC: ER 10:34 → OVERFLOW 16:32 → CENTRAL 20:52
PROVIDERS: ADMIT Family Medicine; ATTEND Family Medicine
PROC: 0FT44ZZ Resection of Gallbladder, Percutaneous Endoscopic Approach (ICD-10-PCS; principal; 2025-08-30 13:36)
DX: K80.00 Calculus of gallbladder with acute cholecystitis without obstruction (principal); E66.9 Obesity, unspecified; E86.0 Dehydration; I10 Essential (primary) hypertension; Z82.49 Family history of ischemic heart disease and other diseases of the circulatory system; Z68.36 Body mass index [BMI] 36.0-36.9, adult; Z79.899 Other long term (current) drug therapy
CPT/HCPCS: 36415; 71045; 76705; 80053; 82962; 83036; 85025; 85610; 85730; 93005; 96365; 96375; G0378; J0330; J2250; J2405; J2704; J3490